=== PATIENT | female | born 1945 | race Two or more races ===

== ENCOUNTER 2018-01-01 14:17 | Emergency (ER) | payer OTHER, BC ==
[~2018-01-01] VITALS: Ht 162.6 cm; Wt 68.3 kg
[2018-01-01 14:36] VITALS: BP 146/75
== END 2018-01-01 17:37 | disposition left against medical advice (07) ==
LOC: EME 14:17
DX: R07.89 Other chest pain (principal); E78.5 Hyperlipidemia, unspecified; Z87.19 Personal history of other diseases of the digestive system
CPT/HCPCS: 71046; 80048; 84484; 85027; 99281; 99283